=== PATIENT | female | born 1965 | race Caucasian/White ===

== ENCOUNTER 2018-07-02 20:10 | Emergency (ER) | payer MEDICARE ==
[~2018-07-02] VITALS: Ht 167.6 cm; Wt 99.8 kg
[~2018-07-02 20:10] MED LIST: ATA25 PO; CITA40TA13 PO; HUM SUBQ; HYDR-2729 PO; INSU100S22 SC; LAM25 PO; LISI-420 PO; LORA-476 PO; SIMV80TA1 PO
[2018-07-02 20:16] VITALS: BP 145/59
--- NOTE | 2018-07-02 20:19 | NUR ---
Sudha deshpande in [facility] - 07/02/18 at 7 by AMA TO BED # 3 AMBULATORY, REPORT GIVEN TO AROLDO OGDEN
--- NOTE | 2018-07-02 20:19 | NUR ---
TO BED # 11,AMBULATORY, REPORT GIVEN TO FRANCI OGDEN.
--- NOTE | 2018-07-02 20:25 | NUR ---
PATIENT IS A 52 Y/O FEMALE WHO PRESENTS TO THE ED S/P FALL. PT STATES THAT IT OCCURRED X10 DAYS AGO. PT REPORTS 8/10 NECK, LOWER BACK PAIN. PT DENIES CP, SOB, N/V/D. PT AWAKE, SLIGHTLY LETHARGIC, ABLE TO RESPOND TO QUESTIONS AND COMMANDS, RR EVEN/UNLABORED. PT REPOSITIONED FOR COMFORT, BED IN LOWEST POSITION. KRYSTLE BERUMEN NOTIFIED. WILL CONTINUE TO MONITOR. Addendum: 07/02/18 at 2056 by MEDDCV PATIENT IS A 52 Y/O FEMALE WHO PRESENTS TO THE ED S/P FALL. PT STATES THAT IT OCCURRED X10 DAYS AGO. PT REPORTS 8/10 NECK, LOWER BACK PAIN. PT DENIES CP, SOB, N/V/D. PT AWAKE AND ALERT, ABLE TO RESPOND TO QUESTIONS AND COMMANDS, RR EVEN/UNLABORED. PT REPOSITIONED FOR COMFORT, BED IN LOWEST POSITION. KRYSTLE BERUMEN NOTIFIED. WILL CONTINUE TO MONITOR.
--- NOTE | 2018-07-02 22:10 | NUR ---
PATIENT RESTING AT THIS TIME. NO SIGNS OF DISTRESS.
[2018-07-02] MEDS ORDERED: KETOROLAC 60 MG/2 ML VIAL IM ONE (23:45)
[2018-07-03] LABS: APPEARANCE,URINE HAZY (CLEAR); BILIRUBIN,URINE NEGATIVE (NEGATIVE); BLOOD, URINE NEGATIVE (NEGATIVE); COLOR,URINE YELLOW (YELLOW); LEUKOCYTE ESTERASE ,URINE 1+ (NEGATIVE); NITRITE, URINE NEGATIVE (NEGATIVE); UGLUCOSE 3+ (NEGATIVE)
[2018-07-03 00:05] LABS: BARBITURATE, URINE NEG. ng/ml (NEG <=200); BENZODIAZEPINE, URINE NEG. ng/mL (NEG <=200); CANNABINOID, URINE NEG. ng/mL (NEG <=50); COCAINE, URINE NEG. ng/mL (NEG <=300); OPIATE, URINE NEG. ng/mL (NEG <=2000); PHENCYCLIDINE SCREEN,URINE NEG. ng/mL (NEG <=25)
--- NOTE | 2018-07-03 00:10 | NUR ---
PATIENT RESTING AT THIS TIME. NO SIGNS OF DISTRESS.
[2018-07-03 00:14] LABS: RBC,URINE 0-5 (RARE) /HPF (0-5); WBC,URINE 20-60 /HPF (0-5)
[2018-07-03] MEDS ORDERED: cefTRIAXone 1,000 MG in LIDOCAINE MPF 1% - 5 mL VIAL 2.1 ML IM ONE (00:35)
[2018-07-03 02:55] VITALS: BP 140/62
--- NOTE | 2018-07-03 02:55 | NUR ---
Patient discharged with v/s stable. Written and verbal after care instructions given and explained. Patient alert, oriented and verbalized understanding of instructions. Ambulatory with steady gait. All questions addressed prior to discharge. ID band removed. Patient advised to follow up with PMD. Rx of NORCO 5MG-325MG, MACROBID AND IBUPROFEN 600MG given. Patient educated on indication of medication including possible reaction and side effects. Opportunity to ask questions provided and answered.
== END 2018-07-03 02:55 | disposition home or self-care (01) ==
LOC: MED 20:10
DX: N39.0 Urinary tract infection, site not specified (principal); G89.29 Other chronic pain; M54.9 Dorsalgia, unspecified; F15.10 Other stimulant abuse, uncomplicated; J45.909 Unspecified asthma, uncomplicated; E11.9 Type 2 diabetes mellitus without complications; I10 Essential (primary) hypertension; Z88.8 Allergy status to other drugs, medicaments and biological substances; Z88.6 Allergy status to analgesic agent; Z79.899 Other long term (current) drug therapy; Z79.4 Long term (current) use of insulin
CPT/HCPCS: 80305; 81001; 81025; 87086; 87186; 96372; 99284; J0696; J1885; J2001

== ENCOUNTER 2018-10-08 13:25 | Emergency (ER) | payer MEDICARE ==
[~2018-10-08] VITALS: Ht 167.6 cm; Wt 92.1 kg
[2018-10-08 13:36] VITALS: BP 130/95
--- NOTE | 2018-10-08 13:38 | NUR ---
PT AMBULATED TO E
--- NOTE | 2018-10-08 14:03 | NUR ---
PATIENT PRESENTS TO ED WITH c/o left knee pain s/p mechanical fall yesterday---ambulatory with steady gait DENIES N/V/D; SKIN IS PINK/WARM/DRY; AAOX4 LUNGS CLEAR BL; HR EVEN AND REGULAR; PT DENIES ANY FEVER, CP, SOB, OR COUGH AT THIS TIME; PATIENT STATES PAIN OF 7/10 AT THIS TIME; VSS; PATIENT POSITIONED FOR COMFORT; HOB ELEVATED; BEDRAILS UP X2; BED DOWN. ER MD MADE AWARE OF PT STATUS.
[2018-10-08 14:24] VITALS: BP 134/89
== END 2018-10-08 14:24 | disposition home or self-care (01) ==
LOC: MED 13:25
DX: S83.92XA Sprain of unspecified site of left knee, initial encounter (principal); J45.909 Unspecified asthma, uncomplicated; E11.9 Type 2 diabetes mellitus without complications; I10 Essential (primary) hypertension; Z79.4 Long term (current) use of insulin; Z79.899 Other long term (current) drug therapy; W19.XXXA Unspecified fall, initial encounter; Y93.89 Activity, other specified; Y92.89 Other specified places as the place of occurrence of the external cause; Y99.8 Other external cause status
CPT/HCPCS: 73562; 99283

== ENCOUNTER 2018-11-09 14:18 | Inpatient (IN) | payer MEDICARE ==
[~2018-11-09] VITALS: Ht 167.6 cm; Wt 90.3 kg
[2018-11-09 14:22] VITALS: BP 137/76
--- NOTE | 2018-11-09 14:25 | NUR ---
PATIENT AMBULATED TO ER BED 1
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
[2018-11-09] MEDS ORDERED: LORazepam 2 MG/ML VIAL IVP ONE (15:05)
[2018-11-09] MEDS ORDERED: KETOROLAC 30 MG/ML VIAL IVP ONE (15:05)
--- NOTE | 2018-11-09 16:01 | NUR ---
NOT ABLE TO GET IV ON PT, IV X 5. DR. QUIJANO AWARE AND NOTIFIED
[2018-11-09 16:06] LABS: BASOPHILS # (AUTO) 0.1 K/uL (0.00-0.22); BASOPHILS % (AUTO) 0.9 % (0.0-2.0); EOSINOPHILS # (AUTO) 0.1 K/uL (0-0.4); EOSINOPHILS % (AUTO) 1.3 % (0.0-4.0); HEMATOCRIT 40.4 % (36-48); HEMOGLOBIN 13.6 g/dL (12.0-16.0); LYMPHOCYTES # (AUTO) 1.8 K/uL (2.5-16.5); LYMPHOCYTES % (AUTO) 21.7 % (20.5-51.1); MEAN CORPUSCULAR HEMOGLOBIN 31 pg (27-31); MEAN CORPUSCULAR HGB CONC 34 g/dL (33-37); MEAN CORPUSCULAR VOLUME 90.7 fL (80-94); MONOCYTES # (AUTO) 0.4 K/uL (0.8-1.0); MONOCYTES % (AUTO) 4.9 % (1.7-9.3); NEUTROPHILS % (AUTO) 71.2 % (42.2-75.2); PLATELET COUNT (AUTO) 358 K/uL (140-450); RED BLOOD CELL COUNT(AUTO) 4.46 MIL/uL (4.20-5.40); RED CELL DISTRIBUTION WIDTH 13.2 % (11.6-13.7); WHITE BLOOD COUNT (AUTO) 8.4 K/uL (4.8-10.8)
--- NOTE | 2018-11-09 16:17 | NUR ---
resident called for iv to the pt, aware and notified
[2018-11-09 16:18] LABS: ANION GAP 14.3 (8-16); CARBON DIOXIDE 25.8 mmol/L (21-32); CREATININE 0.7 mg/dL (0.6-1.3); POTASSIUM 4.1 mmol/L (3.5-5.1)
[2018-11-09 16:24] LABS: ALBUMIN 3.6 g/dL (3.4-5.0); TOTAL BILIRUBIN 0.4 mg/dL (0.0-1.0)
--- NOTE | 2018-11-09 16:36 | NUR ---
resident is in pt room for central line
[2018-11-09 16:47] LABS: MAGNESIUM 1.9 mg/dL (1.8-2.4); PROTHROMBIN TIME 9.4 secs (10.8-13.4)
--- NOTE | 2018-11-09 17:00 | NUR ---
x-ray verified central line placement
[2018-11-09] MEDS ORDERED: LORazepam 2 MG/ML VIAL IM/IVP PRN (17:30)
[2018-11-09] MEDS: ATORVASTATIN 80 MG TAB PO SCH (17:30)
[2018-11-09] MEDS ORDERED: ONDANSETRON 4 MG/2 ML VIAL IM/IVP PRN (17:30)
[2018-11-09] MEDS ORDERED: DOCUSATE SODIUM 100 MG GELCAP PO PRN (17:30)
[2018-11-09] MEDS ORDERED: ZOLPIDEM 5 MG TAB PO PRN (17:30)
[2018-11-09] MEDS ORDERED: ACETAMINOPHEN 325 MG TAB PO PRN (17:30)
[2018-11-09] MEDS ORDERED: NITROGLYCERIN 0.4 MG TAB SL PRN (17:30)
--- NOTE | 2018-11-09 17:33 | NUR ---
heparin [address] leary for central line
[2018-11-09] MEDS ORDERED: DEXTROSE 50% 50 ML SYR IVP PRN ×2 (17:40→23:15)
[2018-11-09 18:16] LABS: CHOL/HDL RATIO 2.4 (1-4.5); FREE T4 (FREE THYROXINE) 1.18 ng/dL (0.76-1.46); MAGNESIUM 2.1 mg/dL (1.8-2.4); PHOSPHORUS 2.3 mg/dL (2.5-4.9); THYROID STIMULATING HORMONE 0.5 uIU/mL (0.34-3.74)
[2018-11-09] MEDS ORDERED: DICYCLOMINE HCL LIQUID 10 MG/5 ML UDC PO SCH (18:20)
[2018-11-09] MEDS ORDERED: ALUMINUM HYD/MAG/SIMETHICONE 30 ML UDC PO SCH (18:30)
[2018-11-09] MEDS ORDERED: LIDOCAINE VISCOUS 2% 20 ML UDC PO SCH (18:30)
[2018-11-09] MEDS ORDERED: PANTOPRAZOLE 40 MG TABEC PO SCH (18:35)
--- NOTE | 2018-11-09 18:40 | NUR ---
Patient will be admitted to care of . Admited to tele floor. Will go to room 119-a. Belongings list completed. Report to rylie dumont.
[2018-11-09 18:46] VITALS: BP 134/81
--- NOTE | 2018-11-09 18:46 | NUR ---
RECEIVED REPORT FROM ED RN. PT IS AMBULATORY. SKIN INTACT. WITH BROKEN JAW. AOX3, DROWSY. NO C/O PAIN OR DISCOMFORT AT THIS TIME. DENIES CP. NO SOB, N/V, DIAPHORESIS, LIGHTHEADEDNESS. SATURATING AT 100% ON 2L NC. RT IJ CENTRAL LINE IN PLACE. LUNGS CTA. HEART RHYTHM REGULAR. ALL SAFETY PRECAUTIONS IN PLACE, WILL CONTINUE TO MONITOR.
[2018-11-09 19:03] LABS: BARBITURATE, URINE NEG. ng/ml (NEG <=200); BENZODIAZEPINE, URINE NEG. ng/mL (NEG <=200); CANNABINOID, URINE POS. ng/mL (NEG <=50); COCAINE, URINE NEG. ng/mL (NEG <=300); OPIATE, URINE NEG. ng/mL (NEG <=2000); PHENCYCLIDINE SCREEN,URINE NEG. ng/mL (NEG <=25)
[2018-11-09] MEDS: NACL 0.9% 1,000 ML IV SCH (19:09)
[2018-11-09 19:18] LABS: APPEARANCE,URINE CLEAR (CLEAR); COLOR,URINE YELLOW (YELLOW)
[2018-11-09 19:19] LABS: BILIRUBIN,URINE 1+ (NEGATIVE); BLOOD, URINE NEGATIVE (NEGATIVE); LEUKOCYTE ESTERASE ,URINE NEGATIVE (NEGATIVE); NITRITE, URINE NEGATIVE (NEGATIVE); UGLUCOSE 3+ (NEGATIVE)
--- NOTE | 2018-11-09 19:26 | NUR ---
ENDORSED POC TO PLANT HEALTH MANAGER RN AT BEDSIDE. PT IN STABLE CONDITION.
--- NOTE | 2018-11-09 19:27 | NUR ---
RECEIVED REPORT FROM DAY SHIFT NURSE RIK-RN AT BEDSIDE. PT ARRIVED VIA GURNEY. AOX1-LETHARGIC AFTER RIGHT IJ CENTRAL LINE PLACEMENT, ON 2L/NC. VITAL SIGNS TAKEN AND TOLERATED WELL. BLOOD GLUCOSE 221- WILL ADMINISTER INSULIN COVERAGE. MRSA COLLECTED BY DAY SHIFT NURSE RIK-RN. NO S/S OF RESPIRATORY DISTRESS OR DISCOMFORT NOTED AT THIS TIME. BED IN LOWEST POSITION, BED BREAKS ON, BOTH SIDE RAILS UP. BEDSIDE TABLE AND CALL LIGHT ARE WITHIN REACH. WILL CONTINUE TO MONITOR.
[2018-11-09 20:00] VITALS: BP 145/75
[2018-11-09] MEDS: METOPROLOL 25 MG TAB PO SCH (21:03)
[2018-11-09] MEDS: BLOOD GLUCOSE MONITORING 1 DEV DEV FS SCH (21:08)
[2018-11-09] MEDS: INSULIN LISPRO SLIDING SCALE 100 UNITS/ML VIAL SUBQ PRN (21:08)
--- NOTE | 2018-11-09 21:08 | NUR ---
SCHEDULED MEDICATION LOPRESSOR GIVEN AND INSULIN COVERAGE GIVEN. PT TOLERATED WELL. NO S/S OF RESPIRATORY DISTRESS OR DISCOMFORT NOTED AT THIS TIME. WILL CONTINUE TO MONITOR.
--- NOTE | 2018-11-09 23:00 | NUR ---
PT CONTINUES TO SLEEP IN BED. NO S/S OF RESPIRATORY DISTRESS OR DISCOMFORT NOTED AT THIS TIME. WILL CONTINUE TO MONITOR.
[2018-11-09] MEDS ORDERED: MECLIZINE 25 MG TAB PO PRN (23:10)
[2018-11-09] MEDS ORDERED: metFORMIN 500 MG TAB PO SCH (23:15)
[2018-11-09] MEDS ORDERED: INSULIN LISPRO SLIDING SCALE 100 UNITS/ML VIAL SUBQ PRN (23:15)
[2018-11-09] MEDS ORDERED: ALBUTEROL SULFATE/IPRATROPIU 3 ML SOL IH PRN (23:20)
[2018-11-10] VITALS: BP 119/69
--- NOTE | 2018-11-10 | NUR ---
VITAL SIGNS TAKEN AND TOLERATED WELL. PT C/O PAIN 3/4 AND INCREASING- JAW PAIN. WILL MEDICATE. NO S/S OF RESPIRATORY DISTRESS OR DISCOMFORT NOTED AT THIS TIME. WILL CONTINUE TO MONITOR.
[2018-11-10] MEDS: ALBUTEROL SULFATE/IPRATROPIU 3 ML SOL IH SCH ×3 (00:06→13:24)
[2018-11-10] MEDS: HYDROcodone/APAP 5/325 MG 1 TAB TAB PO PRN ×3 (00:30→14:30)
--- NOTE | 2018-11-10 00:30 | NUR ---
MEDICATED PT WITH NORCO FOR PAIN. PT TOLERATED WELL. NO S/S OF RESPIRATORY DISTRESS OR DISCOMFORT NOTED AT THIS TIME. WILL CONTINUE TO MONITOR.
--- NOTE | 2018-11-10 02:00 | NUR ---
PT CONTINUES TO SLEEP. NO S/S OF RESPIRATORY DISTRESS OR DISCOMFORT NOTED AT THIS TIME. WILL CONTINUE TO MONITOR.
[2018-11-10 04:00] VITALS: BP 101/59
--- NOTE | 2018-11-10 04:00 | NUR ---
PT C/O THAT SHE FELT HER BLOOD GLUCOSE DECREASING. BLOOD GLUCOSE 217- NO INSULIN GIVEN.
--- NOTE | 2018-11-10 04:00 | NUR ---
VITAL SIGNS TAKEN AND TOLERATED WELL. NO S/S OF RESPIRATORY DISTRESS OR DISCOMFORT NOTED AT THIS TIME. WILL CONTINUE TO MONITOR.
--- NOTE | 2018-11-10 06:00 | NUR ---
BLOOD GLUCOSE 178- WILL ADMINISTER INSULIN COVERAGE. PT TOLERATED WELL. NO S/S OF RESPIRATORY DISTRESS OR DISCOMFORT NOTED AT THIS TIME. WILL CONTINUE TO MONITOR.
--- NOTE | 2018-11-10 06:16 | NUR ---
PT C/O JAW PAIN 02/22 AND MEDICATED WITH NORCO. PT TOLERATED WELL. NO S/S OF RESPIRATORY DISTRESS OR DISCOMFORT NOTED AT THIS TIME. WILL CONTINUE TO MONITOR.
[2018-11-10] MEDS: BLOOD GLUCOSE MONITORING 1 DEV DEV FS SCH ×3 (06:26→16:32)
[2018-11-10] MEDS: INSULIN LISPRO SLIDING SCALE 100 UNITS/ML VIAL SUBQ PRN ×3 (06:45→17:31)
[2018-11-10] MEDS ORDERED: BLOOD GLUCOSE MONITORING 1 DEV DEV FS SCH (07:30)
--- NOTE | 2018-11-10 07:30 | NUR ---
RECEIVED REPORT FROM CHUTE WORKER NURSE VASYL AT BEDSIDE. PT SLEEPING, AROUSED BY NAME, Ox3, LETHARGIC, ON 2L O2 NC. NO S/S OF RESPIRATORY DISTRESS OR DISCOMFORT NOTED AT THIS TIME. PT STATED SHE FELL 1 WEEK AGO, BROKE HER JAW; FALL PRECAUTIONS INITIATED. RIGHT IJ NOTED , TRIPLE LUMEN FLUSHED, PATENT, INTACT. BED IN LOWEST POSITION, BED BREAKS ON, BOTH SIDE RAILS UP. BEDSIDE TABLE AND CALL LIGHT ARE WITHIN REACH. WILL CONTINUE TO MONITOR.
--- NOTE | 2018-11-10 07:37 | NUR ---
ENDORSED PT CARE TO DAY SHIFT NURSE PRESTON FOR CONTINUITY OF CARE.
[2018-11-10 07:48] LABS: BASOPHILS % (AUTO) 0.4 % (0.0-2.0); EOSINOPHILS # (AUTO) 0.1 K/uL (0-0.4); EOSINOPHILS % (AUTO) 1.4 % (0.0-4.0); HEMATOCRIT 38.8 % (36-48); HEMOGLOBIN 13.1 g/dL (12.0-16.0); LYMPHOCYTES # (AUTO) 1.9 K/uL (2.5-16.5); LYMPHOCYTES % (AUTO) 25.5 % (20.5-51.1); MEAN CORPUSCULAR HEMOGLOBIN 31 pg (27-31); MEAN CORPUSCULAR HGB CONC 34 g/dL (33-37); MEAN CORPUSCULAR VOLUME 90.4 fL (80-94); MONOCYTES # (AUTO) 0.5 K/uL (0.8-1.0); MONOCYTES % (AUTO) 6.2 % (1.7-9.3); NEUTROPHILS % (AUTO) 66.5 % (42.2-75.2); PLATELET COUNT (AUTO) 347 K/uL (140-450); RED BLOOD CELL COUNT(AUTO) 4.29 MIL/uL (4.20-5.40); RED CELL DISTRIBUTION WIDTH 13.1 % (11.6-13.7); WHITE BLOOD COUNT (AUTO) 7.5 K/uL (4.8-10.8)
--- NOTE | 2018-11-10 08:05 | NUR ---
ADJUST IVF NS TO 90ML/HR
[2018-11-10] MEDS: SODIUM PHOS / POTASSIUM PHOS 1 PKT PDR PO SCH ×3 (08:17→17:29)
[2018-11-10] MEDS: ATORVASTATIN 80 MG TAB PO SCH (08:17)
[2018-11-10] MEDS: METOPROLOL 25 MG TAB PO SCH (08:17)
[2018-11-10] MEDS: metFORMIN 500 MG TAB PO SCH ×2 (08:18→17:28)
[2018-11-10 08:21] LABS: CARBON DIOXIDE 30.5 mmol/L (21-32); CREATININE 0.7 mg/dL (0.6-1.3)
[2018-11-10 08:29] LABS: MAGNESIUM 2.2 mg/dL (1.8-2.4); PHOSPHORUS 3.3 mg/dL (2.5-4.9)
--- NOTE | 2018-11-10 08:40 | NUR ---
PATIENT RETUNED FROM HEAD CT SCAN, NO ACUTE DISTRESS NOTED
[2018-11-10 08:42] LABS: ANION GAP 7.2 (8-16); POTASSIUM 3.7 mmol/L (3.5-5.1)
--- NOTE | 2018-11-10 08:56 | NUR ---
PATIENT HAS BEEN SCREENED AND CATEGORIZED MODERATE NUTRITION RISK. PATIENT WILL BE SEEN WITHIN 3-5 DAYS OF ADMISSION. 11/12/18 11/14/[address]
[2018-11-10 09:00] VITALS: BP 130/60
[2018-11-10] MEDS ORDERED: PANTOPRAZOLE 40 MG TABEC PO SCH (09:00)
[2018-11-10] MEDS ORDERED: ASPIRIN 81 MG TAB.CHEW PO SCH (09:00)
[2018-11-10] MEDS ORDERED: LISINOPRIL 20 MG TAB PO SCH (09:00)
[2018-11-10] MEDS: NACL 0.9% 1,000 ML IV SCH (11:04)
[2018-11-10 12:00] VITALS: BP 121/69
--- NOTE | 2018-11-10 14:23 | NUR ---
OFFICE PROFESSIONAL IS WITH PT, PT IN STABLE CONDITION.
[2018-11-10 16:00] VITALS: BP 106/61
[2018-11-10] MEDS ORDERED: IBUP-2213 PO (16:02)
--- NOTE | 2018-11-10 17:31 | NUR ---
PT REFUSED HUMALOG 2 UNITS, BLOOD SUGAR 184. EXPLAINED TO PT ABOUT SLIDING SCALE AND IMPORTANCE TO CONTROL BLOOD SUGAR. PT STILL REFUSING, STATED, SHE NOT EATING A LOT. Addendum: 11/10/18 at 1750 by Jatinder Nicholson RN PT DID TAKE METFORMIN AND NEUTRA-PHOS
--- NOTE | 2018-11-10 17:34 | NUR ---
DISCHARGE INSTRUCTION AND MEDICATIONS TEACHING GIVEN. PT VERBALIZED UNDERSTANDING. RX GIVEN. MADE PT AWARE THAT SHE NEEDS TO F/U WITH PCP BEFORE 11/17/[address] STARKS FOR ECHOCARDIOGRAM RESULTS. NO S/S OF ACUTE DISTRESS ON ROOM AIR AT THIS TIME. 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 CALLED [phone] HOME NUMBER ON FILE, NO ONE ANSWERING. TOLD PT WE WILL CALL [employer] FOR HER AND SHE HAS TO PAY FOR HERSELF. PT AGREES.
--- NOTE | 2018-11-10 17:35 | NUR ---
TRYING TO REMOVE PT'S CENTRAL LINE, PT REFUSED AND SAID IT WAS PUT IN BY A DOCTOR AND IT SHOULD BE REMOVED BY A DOCTOR. EXPLAINED TO PT THAT NURSES ARE ABLE TO REMOVE CENTRAL LINES TOO. BUT PT REFUSED. CALLED DR SYED WHO SAID BUSY RIGHT NOW, WILL DO IN A LITTLE BIT.
--- NOTE | 2018-11-10 18:25 | NUR ---
IVF DISCONTINUED, TOTAL 810ML NS WAS INFUSED. Addendum: 11/10/18 at 1909 by Dionisio Dick RN TOTAL 810ML NS WAS INFUSED DURING THE SHIFT
--- NOTE | 2018-11-10 18:25 | NUR ---
CENTRAL LINE REMOVED BY DR PARKER. DRESSING INTACT, PRESSURE APPLIED FOR 5MINS. NO BLEEDING NOTED. INSTRUCT PT TO REMOVE DRESSING AFTER 24 HRS AND NO SHOWERS BEFORE 24 HRS.
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
== END 2018-11-10 18:50 | disposition home or self-care (01) | DRG 391 ==
LOC: MED 14:18 → MTU 17:36
PROVIDERS: ADMIT General Practice; ATTEND General Practice
PROC: 02HV33Z Insertion of Infusion Device into Superior Vena Cava, Percutaneous Approach (ICD-10-PCS; principal; 2018-11-09)
PROC: B548ZZA Ultrasonography of Superior Vena Cava, Guidance (ICD-10-PCS; 2018-11-09)
DX: K21.9 Gastro-esophageal reflux disease without esophagitis (principal); G92 Toxic encephalopathy; S02.609A Fracture of mandible, unspecified, initial encounter for closed fracture; E87.3 Alkalosis; E11.65 Type 2 diabetes mellitus with hyperglycemia; E83.39 Other disorders of phosphorus metabolism; E78.5 Hyperlipidemia, unspecified; F31.9 Bipolar disorder, unspecified; J45.909 Unspecified asthma, uncomplicated; I10 Essential (primary) hypertension; W18.30XA Fall on same level, unspecified, initial encounter; F41.9 Anxiety disorder, unspecified; F15.10 Other stimulant abuse, uncomplicated; Z79.4 Long term (current) use of insulin; Z79.899 Other long term (current) drug therapy; I25.2 Old myocardial infarction; Z83.3 Family history of diabetes mellitus; Z82.49 Family history of ischemic heart disease and other diseases of the circulatory system; Y93.89 Activity, other specified; Y92.89 Other specified places as the place of occurrence of the external cause; Y99.8 Other external cause status
CPT/HCPCS: 36415; 36600; 70450; 70486; 71045; 74018; 80048; 80053; 80305; 81003; 81025; 82140; 82150; 82803; 82948; 83036; 83605; 83690; 83735; 83880; 84100; 84134; 84439; 84443; 84484; 85025; 85379; 85610; 85730; 87081; 93005; 93925; 93970; 94640; 96374; 96375; 99285; G0482; J1885; J2060; J7030; J7620; Q0092

== ENCOUNTER 2019-01-27 19:23 | Emergency (ER) | payer MEDICARE ==
[~2019-01-27] VITALS: Ht 167.6 cm; Wt 81.6 kg
[~2019-01-27 19:23] MED LIST changes: +IBUP-2213 PO
[2019-01-27 19:30] VITALS: BP 132/71
--- NOTE | 2019-01-27 20:22 | NUR ---
PT AMBULATED TO ER BED 12
--- NOTE | 2019-01-27 20:25 | NUR ---
DR ESQUIVEL AT BEDSIDE EVUALUATING PT.
--- NOTE | 2019-01-27 20:30 | NUR ---
XRAY AT BEDSIDE.
--- NOTE | 2019-01-27 20:30 | NUR ---
BIB SELF CO LEFT FOOT PAIN WITH NUMBNESS/TINGLING SINCE THIS AM. PT STATES HER FOOT FEELS LIKE RUBBER AND HAS FALLEN AT LEAST 4 TIMES TODAY. NO OTHER INJURIES REPORTED. PT ALSO STATES SHE IS A DIABETIC. BS TAKEN IN TRIAGE: 372. PEDAL PULSES STRONG INES. ROM IN TACT WITH SOME DIFFICULTY IN WIGGLING LEFT TOES.
[2019-01-27 21:47] VITALS: BP 91/55
--- NOTE | 2019-01-27 21:47 | NUR ---
Patient discharged with v/s stable. Written and verbal after care instructions given and explained. Patient alert, oriented and verbalized understanding of instructions. Ambulatory with steady gait. All questions addressed prior to discharge. ID band removed. Patient advised to follow up with PMD. Rx of Gabapentin given. Patient educated on indication of medication including possible reaction and side effects. Opportunity to ask questions provided and answered.
== END 2019-01-27 21:47 | disposition home or self-care (01) ==
LOC: MED 19:23
DX: E11.40 Type 2 diabetes mellitus with diabetic neuropathy, unspecified (principal); M79.672 Pain in left foot; J45.909 Unspecified asthma, uncomplicated; Z79.899 Other long term (current) drug therapy; Z79.4 Long term (current) use of insulin; W19.XXXA Unspecified fall, initial encounter; Y93.89 Activity, other specified; Y92.89 Other specified places as the place of occurrence of the external cause; Y99.8 Other external cause status
CPT/HCPCS: 73610; 73620; 99283; Q0092

== ENCOUNTER 2019-07-27 16:30 | Emergency (ER) | payer MEDICARE ==
[~2019-07-27] VITALS: Ht 167.6 cm; Wt 86.6 kg
[2019-07-27 16:38] VITALS: BP 124/64
--- NOTE | 2019-07-27 16:43 | NUR ---
PATIENT AMBULATED TO BED 5 AT THIS TIME.
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
[2019-07-27] MEDS ORDERED: ACETAMINOPHEN EXTRA STRENGTH 500 MG TAB PO ONE (17:30)
--- NOTE | 2019-07-27 17:37 | NUR ---
ASKED PATIENT TO HAVE URINE SAMPLE. PT RESPONED: "I HAD HYSTERECTOMY LONG TIME AGO, AND I DON'T HAVE PERIODS ANY MORE. I'VE ALREADY TOLD EVEVRYBODY, AND IT SHOULD BE IN THE CHART." PT ALSO STATES SHE IS NOT ABLE TO URINATE AT THIS TIME.
--- NOTE | 2019-07-27 18:14 | NUR ---
SPOKE WITH PATIENT AND PT STATED SHE WANTED TO SIGN OUT AMA. PATIENT STATES SHE IS STILL C/O PAIN WITH NO IMPROVEMENT FROM MEDICATIONS. ALIZA DAMIAN AND DR. ODONNELL MADE AWARE. DR. ODONNELL AT BEDSIDE SPEAKING WITH PATIENT, PT IS AGREEING TO STAY FOR MORE PAIN MEDICATION AND RECEIVE RESULTS OF X-RAYS AT THIS TIME.
[2019-07-27] MEDS ORDERED: KETOROLAC 60 MG/2 ML VIAL IM ONE (18:15)
[2019-07-27] MEDS ORDERED: HYDROcodone/APAP 5/325 MG 1 TAB TAB PO ONE (18:15)
[2019-07-27 18:54] VITALS: BP 133/75
--- NOTE | 2019-07-27 18:54 | NUR ---
Patient discharged with v/s stable. Written and verbal after care instructions given and explained. Patient alert, oriented and verbalized understanding of instructions. Ambulatory with steady gait. All questions addressed prior to discharge. ID band removed. Patient advised to follow up with PMD. Rx of Acetaminophen and Ibuprofen given. Patient educated on indication of medication including possible reaction and side effects. Opportunity to ask questions provided and answered.
== END 2019-07-27 18:54 | disposition home or self-care (01) ==
LOC: MED 16:30
DX: S39.012A Strain of muscle, fascia and tendon of lower back, initial encounter (principal); S00.03XA Contusion of scalp, initial encounter; J45.909 Unspecified asthma, uncomplicated; E11.9 Type 2 diabetes mellitus without complications; Z79.4 Long term (current) use of insulin; Z79.899 Other long term (current) drug therapy; V89.2XXA Person injured in unspecified motor-vehicle accident, traffic, initial encounter; Y93.89 Activity, other specified; Y92.481 Parking lot as the place of occurrence of the external cause; Y99.8 Other external cause status
CPT/HCPCS: 72110; 96372; 99283; J1885

== ENCOUNTER 2019-12-27 16:38 | Emergency (ER) | payer MEDICARE ==
[~2019-12-27] VITALS: Ht 167.6 cm; Wt 89.8 kg
[2019-12-27 16:44] VITALS: BP 152/96
--- NOTE | 2019-12-27 16:59 | NUR ---
54/F TO ED C/O LEFT LEG PAIN S/P FALL 4 DAYS AGO. NO DEFORMITY. NO INJURY. CMS INTACT. AMBULATORY WITHOUT DIFFICULTY TO FAST TRACK CHAIR.
--- NOTE | 2019-12-27 17:26 | NUR ---
PT STATED "I'M JUST GOING TO GO HOME AND TAKE MY IBUPROFEN MY PAIN IS A 7 NOW IM LEAVING"
[2019-12-27 17:27] VITALS: BP 152/96
--- NOTE | 2019-12-27 17:28 | NUR ---
PATIENT LEFT WITHOUT BEING SEEN BY DR. ROBLES. NO FURTHER CARE PROVIDED FOR PATIENT.
== END 2019-12-27 17:26 | disposition left against medical advice (07) ==
LOC: MED 16:38
DX: M25.572 Pain in left ankle and joints of left foot (principal); Z53.21 Procedure and treatment not carried out due to patient leaving prior to being seen by health care provider

== ENCOUNTER 2020-09-05 19:52 | Emergency (ER) | payer MEDICARE ==
[~2020-09-05] VITALS: Ht 165.1 cm; Wt 81.6 kg
[~2020-09-05 19:52] MED LIST changes: +CIPR250T3 PO; -CITA40TA13 PO; +HUMSLIDE; -LISI-420 PO; +LISI10TA11 PO; +METR500T1 PO; -SIMV80TA1 PO
[2020-09-05 19:58] VITALS: BP 144/84
--- NOTE | 2020-09-05 20:02 | NUR ---
To ED bed 11
--- NOTE | 2020-09-05 20:08 | NUR ---
55 YO F BIB SELF FOR C/C OF 06/24 LEFT HAND LAC X30 MIN AFTER CUTTING HERSELF OPENING A CAN. LAC IS ABOUT 5 CM IN LENGTH AND 2 CM DEEP. RADIAL PULSES ARE EQUAL AND REGULAR, ROM INTACT. PTDENIES BEING ON BLOOD THINNERS OR TAKING ANY OTC MEDS FOR PAIN. LAST TETNUS SHOT WAS OVER 5 YEARS AGO. MED HX: DM, HTN RX:LISINOPRIL
[2020-09-05] MEDS ORDERED: LIDOCAINE MPF 1% 10 MG/ML VIAL INJ ONE ×3 (20:15→20:40)
[2020-09-05] MEDS ORDERED: IBUPROFEN 800 MG TAB ONE (20:20)
--- NOTE | 2020-09-05 20:35 | NUR ---
AFSHAN AND EMT PERFORMING LAC REPAIR
--- NOTE | 2020-09-05 20:58 | NUR ---
CONSENT ONTAINED FOR TDAP
[2020-09-05 21:02] VITALS: BP 144/84
== END 2020-09-05 21:02 | disposition home or self-care (01) ==
LOC: MED 19:52
DX: S61.411A Laceration without foreign body of right hand, initial encounter (principal); E11.9 Type 2 diabetes mellitus without complications; I10 Essential (primary) hypertension; Z79.899 Other long term (current) drug therapy; W25.XXXA Contact with sharp glass, initial encounter; Y93.89 Activity, other specified; Y92.89 Other specified places as the place of occurrence of the external cause; Y99.8 Other external cause status
CPT/HCPCS: 12002; 90471; 90715; 99283; J2001

== ENCOUNTER 2021-01-13 12:28 | Emergency (ER) | payer MEDICARE ==
[~2021-01-13] VITALS: Ht 167.6 cm; Wt 77.1 kg
[~2021-01-13 12:28] MED LIST changes: -LISI10TA11 PO; +LISI10TA30 PO
[2021-01-13 12:31] VITALS: BP 174/81
--- NOTE | 2021-01-13 12:33 | NUR ---
Patient ambulated to bed 4. RN evaluating the patient at bedside.
--- NOTE | 2021-01-13 12:51 | NUR ---
Dr. Malloy is evaluating the patient at bedside.
--- NOTE | 2021-01-13 12:55 | NUR ---
55 YEAR OLD FEMALE COMPLAINS OF ABDOMINAL PAIN X YESTERDAY. PT STATES THAT SHE HAS HAD FOOD FROM [employer] AND IT TASTED WEIRD. PT STATES NAUSEA AND VOMITTING LAST NIGHT. PT IN DISTRESS FROM PAIN, HAS DIFFICULTY ANSWERING QUESTIONS OR FOCUSING. PT AOX4, BREATHING LABORED AND EVEN, SKIN WARM AND DRY. BED IN LOWEST POSITION, LOCKED, BED RAIL UPX1. PMH - HTN, DM2 ALLERGIES - NKA
[2021-01-13] MEDS ORDERED: NACL 0.9% 1,000 ML IV ONE (13:00)
[2021-01-13] MEDS ORDERED: ONDANSETRON 4 MG/2 ML VIAL IVP ONE (13:00)
[2021-01-13] MEDS ORDERED: KETOROLAC 15 MG/ML VIAL IVP ONE (13:00)
[2021-01-13] MEDS ORDERED: FAMOTIDINE 20 MG/2 ML VIAL IVP ONE (13:00)
--- NOTE | 2021-01-13 13:05 | NUR ---
PT STATES SHE IS UNABLE TO URINATE, TOO MUCH PAIN. ERMD MADE AWARE
[2021-01-13 13:19] LABS: BASOPHILS % (AUTO) 0.8 % (0.0-2.0); EOSINOPHILS % (AUTO) 0.2 % (0.0-4.0); HEMATOCRIT 39.3 % (36-48); HEMOGLOBIN 13.9 g/dL (12.0-16.0); LYMPHOCYTES # (AUTO) 1.2 K/uL (2.5-16.5); LYMPHOCYTES % (AUTO) 21.3 % (20.5-51.1); MEAN CORPUSCULAR HEMOGLOBIN 31 pg (27-31); MEAN CORPUSCULAR HGB CONC 35 g/dL (33-37); MEAN CORPUSCULAR VOLUME 88.6 fL (80-94); MONOCYTES # (AUTO) 0.4 K/uL (0.8-1.0); MONOCYTES % (AUTO) 6.1 % (1.7-9.3); NEUTROPHILS # (AUTO) 4.2 K/uL (1.8-7.7); NEUTROPHILS % (AUTO) 71.6 % (42.2-75.2); PLATELET COUNT (AUTO) 349 K/uL (140-450); RED BLOOD CELL COUNT(AUTO) 4.44 MIL/uL (4.20-5.40); RED CELL DISTRIBUTION WIDTH 12.8 % (11.6-13.7); WHITE BLOOD COUNT (AUTO) 5.8 K/uL (4.8-10.8)
[2021-01-13 13:35] LABS: ALBUMIN 3.8 g/dL (3.4-5.0); ANION GAP 11.4 (8-16); CARBON DIOXIDE 31.2 mmol/L (21-32); CREATININE 0.8 mg/dL (0.6-1.3); POTASSIUM 3.6 mmol/L (3.5-5.1); TOTAL BILIRUBIN 0.5 mg/dL (0.0-1.0)
--- NOTE | 2021-01-13 13:45 | NUR ---
PT STATES THAT SHE REMAINS IN PAIN, ERMD MADE AWARE.
--- NOTE | 2021-01-13 14:05 | NUR ---
ATTEMPTED TO PERFORM EKG, PATIENT REFUSED DR. ANDERS MADE AWARE.
[2021-01-13] MEDS ORDERED: ONDA4TAB PO (14:13)
[2021-01-13] MEDS ORDERED: FAMO-90 PO (14:14)
[2021-01-13 14:20] VITALS: BP 160/82
--- NOTE | 2021-01-13 14:23 | NUR ---
DARVIND STATES OK FOR DISCHARGE WITHOUT URINE. STATES HE WILL GIVE HER PAIN MEDS BY PRESCRIPTION ON DISCHARGE.
--- NOTE | 2021-01-13 14:25 | NUR ---
Patient discharged with v/s stable. Written and verbal after care instructions about famotidine and vomiting given and explained. Patient alert, oriented and verbalized understanding of instructions. Ambulatory with steady gait. All questions addressed prior to discharge. ID band removed. Patient advised to follow up with PMD. Rx of given. Patient educated on indication of medication including possible reaction and side effects. Opportunity to ask questions provided and answered.
--- NOTE | 2021-01-15 19:54 | NUR ---
LATE ENTRY- NORMAL SALINE 0.9% DISCONTINUED AT 1500
== END 2021-01-13 14:25 | disposition home or self-care (01) ==
LOC: MED 12:28
DX: K29.70 Gastritis, unspecified, without bleeding (principal); E11.9 Type 2 diabetes mellitus without complications; I10 Essential (primary) hypertension; Z79.899 Other long term (current) drug therapy
CPT/HCPCS: 36415; 80053; 83690; 85025; 96361; 96374; 96375; 99284; G0482; J1885; J2405; J3490; J7030; 93005; 99283; 99285

== ENCOUNTER 2021-07-31 16:04 | Emergency (ER) | payer MEDICARE ==
[~2021-07-31] VITALS: Ht 167.6 cm; Wt 80.7 kg
[~2021-07-31 16:04] MED LIST changes: +FAMO-90 PO; +ONDA4TAB PO
[2021-07-31 16:18] VITALS: BP 147/86
--- NOTE | 2021-07-31 16:24 | NUR ---
BIB SELF C/O 06/24 PAINFUL URINATION, LOWER ABD PAIN X 2 WEEKS. PMH: DM, HTN, HYSTERECTOMY
[2021-07-31] MEDS ORDERED: LIDOCAINE MPF 1% 5 ML ONE (17:26)
[2021-07-31] MEDS ORDERED: cefTRIAXone 1,000 MG VIAL ONE (17:26)
[2021-07-31] MEDS: cefTRIAXone 1,000 MG in LIDOCAINE MPF 1% 2.1 ML IM ONE (17:31)
[2021-07-31] MEDS: KETOROLAC 60 MG/2 ML VIAL IM ONE (17:32)
[2021-07-31 17:41] LABS: BASOPHILS % (AUTO) 0.4 % (0.0-2.0); EOSINOPHILS % (AUTO) 0.2 % (0.0-4.0); HEMATOCRIT 39.2 % (36-48); HEMOGLOBIN 13.5 g/dL (12.0-16.0); LYMPHOCYTES # (AUTO) 1.8 K/uL (2.5-16.5); LYMPHOCYTES % (AUTO) 25.7 % (20.5-51.1); MEAN CORPUSCULAR HEMOGLOBIN 31 pg (27-31); MEAN CORPUSCULAR HGB CONC 35 g/dL (33-37); MEAN CORPUSCULAR VOLUME 89.2 fL (80-94); MONOCYTES # (AUTO) 0.5 K/uL (0.8-1.0); MONOCYTES % (AUTO) 6.6 % (1.7-9.3); NEUTROPHILS # (AUTO) 4.7 K/uL (1.8-7.7); NEUTROPHILS % (AUTO) 67.1 % (42.2-75.2); PLATELET COUNT (AUTO) 382 K/uL (140-450); RED BLOOD CELL COUNT(AUTO) 4.39 MIL/uL (4.20-5.40); RED CELL DISTRIBUTION WIDTH 12.7 % (11.6-13.7); WHITE BLOOD COUNT (AUTO) 6.9 K/uL (4.8-10.8)
[2021-07-31 18:12] LABS: ANION GAP 14.3 (8-16); CARBON DIOXIDE 30.5 mmol/L (21-32); CREATININE 0.7 mg/dL (0.6-1.3); POTASSIUM 3.8 mmol/L (3.5-5.1)
[2021-07-31] MEDS ORDERED: CEPH-588 PO (18:17)
[2021-07-31] MEDS ORDERED: NAPR-54 PO (18:17)
[2021-07-31 18:44] VITALS: BP 147/86
--- NOTE | 2021-07-31 18:44 | NUR ---
Patient discharged with v/s stable. Written and verbal after care instructions given and explained. Patient alert, oriented and verbalized understanding of instructions. Ambulatory with steady gait. All questions addressed prior to discharge. ID band removed. Patient advised to follow up with PMD. Rx of KEFLEX, NAPROSYN given. Patient educated on indication of medication including possible reaction and side effects. Opportunity to ask questions provided and answered.
== END 2021-07-31 18:44 | disposition home or self-care (01) ==
LOC: MED 16:04
DX: N39.0 Urinary tract infection, site not specified (principal); R35.0 Frequency of micturition; E11.9 Type 2 diabetes mellitus without complications; I10 Essential (primary) hypertension; Z79.4 Long term (current) use of insulin; Z79.899 Other long term (current) drug therapy
CPT/HCPCS: 36415; 80048; 81002; 85025; 87086; 96372; 99284; J0696; J1885; J2001

== ENCOUNTER 2021-11-28 07:38 | Emergency (ER) | payer MEDICARE ==
[~2021-11-28] VITALS: Ht 167.6 cm; Wt 81.6 kg
[~2021-11-28 07:38] MED LIST changes: +CEPH-588 PO; -IBUP-2213 PO; +NAPR-54 PO
[2021-11-28 08:05] VITALS: BP 150/78
--- NOTE | 2021-11-28 11:35 | NUR ---
ATTEMPTED TO BRING PT BACK TO A ROOM FOR IV FLUIDS S/P HIGH BS READING. PT STATING THAT SHE DOESNT WANT TO STAY THAT HER RIDE IS HERE. DR ANDERS MADE AWARE
--- NOTE | 2021-11-28 11:37 | NUR ---
PT PLACED IN RIGHT ORTHO-KNEE IMMOBILIZOR AND GIVEN CRUTCHES THAT WERE ADJUSTED TO PT'S SIZE AND HEIGHT, PT STATES THAT THEY KNOW HOW TO USE CRUTCHES AND SHOWED PROPER DEMENSTRATION ON HOW TO USE THEM. PT HAD NO FURTHER QUESTIONS. RN NOTIFIED.
--- NOTE | 2021-11-28 11:38 | NUR ---
Patient discharged with v/s stable. Written and verbal after care instructions ABOUT ACUTE KNEE PAIN AND HEAD INJURY given and explained. Patient verbalized understanding. Ambulatory with steady gai WITH CRUTCHES. All questions addressed prior to discharge. Advised to follow up with PMD.
== END 2021-11-28 11:38 | disposition home or self-care (01) ==
LOC: MED 07:38
DX: S09.90XA Unspecified injury of head, initial encounter (principal); M25.561 Pain in right knee; E11.9 Type 2 diabetes mellitus without complications; J45.909 Unspecified asthma, uncomplicated; I10 Essential (primary) hypertension; W22.8XXA Striking against or struck by other objects, initial encounter; Y93.89 Activity, other specified; Y92.89 Other specified places as the place of occurrence of the external cause; Y99.8 Other external cause status
CPT/HCPCS: 29505; 70450; 73562; 99284

== ENCOUNTER 2021-12-11 04:17 | Emergency (ER) | payer MEDICARE ==
[~2021-12-11] VITALS: Ht 165.1 cm; Wt 85.7 kg
[2021-12-11] MEDS ORDERED: IBUPROFEN 800 MG TAB PO ONE (04:45)
[2021-12-11] MEDS ORDERED: HYDROcodone/APAP 5/325 MG 1 TAB TAB PO ONE (04:45)
--- NOTE | 2021-12-11 04:51 | NUR ---
patient to xr via w/c
--- NOTE | 2021-12-11 04:57 | NUR ---
PT RETURN FROM TAM TO KRYSTLE TAPIA
[2021-12-11 05:10] VITALS: BP 145/84
--- NOTE | 2021-12-11 05:20 | NUR ---
PATIENT AWAITING IN LOBBY
[2021-12-11] MEDS ORDERED: IBUP-2218 PO (05:48)
[2021-12-11] MEDS ORDERED: DEXAMETHASONE 4 MG/ML VIAL IM ONE (06:55)
--- NOTE | 2021-12-11 07:30 | NUR ---
BIB SELF C/O LEFT ARM PAIN STARTED YESTERDAY. PATIENT WAS PICKING FOR ORANGES AND GOT HURT. DENIES FALLING. REPORTS "RE-DISLOCATING SHOULDER". 08/24 PAIN. PMH: DM, HTN, HYSTERECTOMY NKA
[2021-12-11 07:41] VITALS: BP 158/88
== END 2021-12-11 07:41 | disposition home or self-care (01) ==
LOC: MED 04:17
DX: G89.29 Other chronic pain (principal); M25.512 Pain in left shoulder; J45.909 Unspecified asthma, uncomplicated; E11.9 Type 2 diabetes mellitus without complications; I10 Essential (primary) hypertension; Z79.4 Long term (current) use of insulin; Z79.899 Other long term (current) drug therapy
CPT/HCPCS: 73030; 96372; 99283; J1100